=== PATIENT | female | born 1940 | race Caucasian/White ===

== ENCOUNTER 2016-12-07 17:02 | Emergency (ER) | payer BC, MEDICARE ==
[~2016-12-07] VITALS: Ht 167.6 cm; Wt 102.3 kg
[2016-12-07 17:06] VITALS: TEMP 99.1
[2016-12-07 17:40] LABS: BASO # 0.1 (0.0-0.2); BASO % 0.4 % (0.0-2.0); EOS % 0.2 % (0-4.0); GRAN # 9.7 (1.4-6.5); GRAN % 86.7 % (42.2-75.2); HEMATOCRIT 40.5 % (37.0-47.0); HEMOGLOBIN 13.1 g/dl (12.5-16.0); LYMPH % 9.3 % (20.0-51.0); MEAN CELL VOLUME 95 fl (80.0-100.0); MEAN CORPUSCULAR HEMOGLOBIN 31 pg (27.0-31.0); MEAN CORPUSCULAR HGB CONC 32 g/dl (33.0-37.0); MEAN PLATELET VOLUME 10.4 fl (7.4-10.4); MONO # 0.3 (0.1-0.6); MONO % 2.9 % (1.7-9.3); PLATELET COUNT 262 K/mm3 (130-400); RED BLOOD COUNT 4.27 M/mm3 (4.10-5.30); WHITE BLOOD COUNT 11.2 K/mm3 (4.8-10.8)
[2016-12-07] MEDS ORDERED: FOLIC ACID 11 MG/TA1 PO (17:47)
[2016-12-07] MEDS ORDERED: ASPIRIN 81M81 MG/TA2 PO (17:47)
[2016-12-07] MEDS ORDERED: NORCO 325 MG-7.1 TAB PO (17:48)
[2016-12-07] MEDS ORDERED: SYNTHROID0.05 MG/TA PO (17:49)
[2016-12-07] MEDS ORDERED: REMICADE V100 MG/VIA IV (17:49)
[2016-12-07] MEDS ORDERED: LANTUS100 U/ML SQ (17:49)
[2016-12-07] MEDS ORDERED: METHOTREXATE50/2 IM (17:50)
[2016-12-07] MEDS ORDERED: PRINIVIL5 MG PO (17:50)
[2016-12-07 17:51] LABS: ADJUSTED CALCIUM 8.7 mg/dL (8.4-10.2); ALANINE AMINOTRANSFERASE 50 U/L (9-52); ALBUMIN 4.1 gm/dL (3.5-5.0); ALKALINE PHOSPHATASE 123 U/L (50-136); ANION GAP 11 mmol/L (7-16); BILIRUBIN,TOTAL 0.8 mg/dL (0.0-1.0); BLOOD UREA NITROGEN 10 mg/dL (7-17); CALCIUM 8.8 mg/dL (8.4-10.2); CARBON DIOXIDE 24 mmol/L (22-30); CHLORIDE 102 mmol/L (98-107); CREATININE, serum 0.71 mg/dL (0.52-1.25); GLUCOSE 231 mg/dL (74-106); LIPASE 220 U/L (23-300); SODIUM 137 mmol/L (137-145); TOTAL PROTEIN 7.5 gm/dL (6.4-8.2)
[2016-12-07] MEDS ORDERED: ZOFRAN ODT4 MG PO (17:51)
[2016-12-07 17:52] LABS: C-REACTIVE PROTEIN < 0.5 mg/dL (0.0-0.9)
[2016-12-07] MEDS ORDERED: ZOLOFT 100MG100 MG PO (17:52)
[2016-12-07] MEDS ORDERED: VESICARE 5MG5 MG PO (17:52)
[2016-12-07] MEDS ORDERED: ZANTAC 150MG T150 MG PO (17:52)
[2016-12-07] MEDS ORDERED: ZOCOR 40MG40 MG PO (17:52)
[2016-12-07 18:15] LABS: COLLECTION METHOD CLEAN CATCH
[2016-12-07 18:25] LABS: MUCOUS Present /lpf; PH 6 (5-8); SQUAMOUS EPITHELIAL 0-2 /hpf; URINE APPEARANCE Cloudy; URINE BACTERIA Moderate /hpf; URINE BILIRUBIN Negative (NEGATIVE); URINE BLOOD 1+ (NEGATIVE); URINE COLOR Yellow; URINE GLUCOSE 1+ (NEGATIVE); URINE KETONE Negative (NEGATIVE); URINE LEUKOCYTE ESTERASE 3+ (NEGATIVE); URINE PROTEIN(semi-quant) Negative (NEGATIVE); URINE RBC 0-2 /hpf; URINE UROBILINOGEN Negative (NEGATIVE)
[2016-12-07 18:26] LABS: URINE WBC >50 /hpf
[2016-12-07] MEDS ORDERED: MACROBID 1100 MG/CAP PO (18:40)
[2016-12-07 19:25] VITALS: BP 127/69; PULSE 74
== END 2016-12-07 19:27 | disposition home or self-care (01) ==
LOC: COL.ER 17:02
PROVIDERS: Family Medicine
DX: N30.00 Acute cystitis without hematuria (principal); B96.1 Klebsiella pneumoniae [K. pneumoniae] as the cause of diseases classified elsewhere; E11.9 Type 2 diabetes mellitus without complications; Z85.118 Personal history of other malignant neoplasm of bronchus and lung; Z79.4 Long term (current) use of insulin; Z79.82 Long term (current) use of aspirin
CPT/HCPCS: J0696; J7030; Q9967

== ENCOUNTER 2020-12-16 17:49 | Inpatient (IN) | payer MEDICARE, BC ==
[~2020-12-16] VITALS: Ht 165.1 cm; Wt 85.7 kg
[~2020-12-16 17:49] MED LIST: ASPIRIN 81M81 MG/TA2 PO; FOLIC ACID 11 MG/TA1 PO; LANTUS100 U/ML SQ; MACROBID 1100 MG/CAP PO; METHOTREXATE50/2 IM; NORCO 325 MG-7.1 TAB PO; PRINIVIL5 MG PO; REMICADE V100 MG/VIA IV; SYNTHROID0.05 MG/TA PO; VESICARE 5MG5 MG PO; ZANTAC 150MG T150 MG PO; ZOCOR 40MG40 MG PO; ZOFRAN ODT4 MG PO; ZOLOFT 100MG100 MG PO
[2020-12-16 21:37] LABS: BASO # 0.1 K/mm3 (0.0-0.2); BASO % 0.8 % (0.0-2.0); EOS # 0.3 K/mm3 (0.0-0.7); GRAN # 9.5 K/mm3 (1.4-6.5); GRAN % 72.5 % (42.2-75.2); HEMATOCRIT 37.6 % (37.0-47.0); LYMPH % 15.2 % (20.0-51.0); MEAN CELL VOLUME 90 fl (80.0-100.0); MEAN CORPUSCULAR HEMOGLOBIN 29 pg (27.0-31.0); MEAN CORPUSCULAR HGB CONC 32 g/dl (33.0-37.0); MEAN PLATELET VOLUME 9.8 fl (7.4-10.4); MONO # 1.1 K/mm3 (0.1-0.6); MONO % 8.7 % (1.7-9.3); PLATELET COUNT 485 K/mm3 (130-400); RED BLOOD COUNT 4.16 M/mm3 (4.10-5.30)
[2020-12-16 21:56] LABS: ALANINE AMINOTRANSFERASE 9 U/L (0-55); ALBUMIN 2.5 gm/dL (3.4-4.8); ALKALINE PHOSPHATASE 149 U/L (40-150); ANION GAP 14 mmol/L (7-16); AST,SGOT 13 U/L (5-34); BILIRUBIN,TOTAL 0.6 mg/dL (0.2-1.2); BLOOD UREA NITROGEN 6 mg/dL (10-20); C-REACTIVE PROTEIN 5.32 mg/dL (0.00-0.50); CALCIUM 8.6 mg/dL (8.4-10.2); CARBON DIOXIDE 23 mmol/L (23-31); CHLORIDE 102 mmol/L (98-107); CREATININE, serum 0.72 mg/dL (0.57-1.11); GLUCOSE 120 mg/dL (70-99); LIPASE < 10 U/L (8-78); POTASSIUM 3.7 mmol/L (3.5-4.5); SODIUM 139 mmol/L (136-145)
[2020-12-16 22:28] LABS: COLLECTION METHOD CATHETER
[2020-12-16 22:36] LABS: MUCOUS Present /lpf; PH 6 (5-8); URINE APPEARANCE Turbid; URINE BACTERIA Rare /hpf; URINE BILIRUBIN Negative (NEGATIVE); URINE BLOOD Negative (NEGATIVE); URINE COLOR Yellow; URINE GLUCOSE Negative (NEGATIVE); URINE KETONE Trace (NEGATIVE); URINE LEUKOCYTE ESTERASE 3+ (NEGATIVE); URINE NITRATE Positive (NEGATIVE); URINE PROTEIN(semi-quant) 2+ (NEGATIVE)
[2020-12-16] MEDS ORDERED: TYLENOL 325MG325 MG PO (23:38)
[2020-12-16] MEDS ORDERED: ROBAXIN 50500 MG/TAB PO (23:40)
[2020-12-16] MEDS ORDERED: MIRALAX PA17 GM/Dose PO (23:42)
[2020-12-16] MEDS ORDERED: SENNA-LAX8.6 MG PO (23:43)
[2020-12-16] MEDS ORDERED: CRANBERRY450 MG PO (23:44)
[2020-12-16] MEDS ORDERED: GLUCOPHAGE500 MG/TAB PO (23:45)
[2020-12-16] MEDS ORDERED: ZOLOFT 50MG50 MG PO (23:46)
[2020-12-16] MEDS ORDERED: SF 1.1% GEL1.1% PO (23:47)
[2020-12-16] MEDS ORDERED: ZOFRAN 4MG T4 MG/TAB PO (23:49)
[2020-12-16] MEDS ORDERED: ANTI-DIARRHEAL2 MG PO (23:50)
[2020-12-16] MEDS ORDERED: PROTONIX 40MG T40 MG PO (23:51)
[2020-12-16] MEDS ORDERED: LOMOTIL 0.025 M1 TAB PO (23:52)
[2020-12-16] MEDS ORDERED: NOVOLOG 100U100 U/M1 SQ (23:53)
[2020-12-17] VITALS (7 sets, daily range): BP systolic 113–146; BP diastolic 44–80; PULSE 71–95; TEMP 98–99.1
--- NOTE | 2020-12-17 04:09 | NUR ---
PT ARRIVES TO ROOM @ 0230 VIA ER CART. PT TRANSFERRED TO BED WITH SLIDE BOARD ET 3 PERSON ASSIST. PT IS INCONTINENT OF A LARGE AMOUNT OF URINE. PERICARE DONE ET ORLANDA APPLIED. PT IS A&O X3, STATES THAT SHE HAS HAD HER SYMPTOMS SINCE SHE FELL @ THE BEGINNING OF . DENIES PAIN, SOB OR NAUSEA @ THIS TIME. PT EDUCATED ON USE OF CALL LIGHT ET FALL PRECAUTIONS, STATES THAT SHE DOES NOT WALK ET USES A WC. PT IS ASSISTED TO LAY ON RIGHT SIDE, STATES THAT HER BOTTOM HAS BEEN SORE R/T DIARRHEA. PT REQUESTS THAT HER SPOUSE BE NOTIFIED OF HER ADMISSION. SPOUSE IS CALLED, VISITOR POLICY EXPLAINED TO BOTH PT ET SPOUSE. RESPIRATIONS UNLABORED, BED ALARM ON, CALL LIGHT WITHIN REACH.
--- NOTE | 2020-12-17 06:53 | NUR ---
Report received from HAIM Welch. Pt. resting in bed w/ eyes closed, pt. appears to be sleeping. Bed alarm on, call light and belongings in reach.
[2020-12-17 07:08] LABS: INR 1.2 (0.8-3.0); PROTHROMBIN TIME 13.4 SECONDS (9.7-12.8)
[2020-12-17 07:23] LABS: BASO # 0.1 K/mm3 (0.0-0.2); BASO % 0.6 % (0.0-2.0); EOS # 0.4 K/mm3 (0.0-0.7); EOS % 3.6 % (0-4.0); GRAN # 7.7 K/mm3 (1.4-6.5); GRAN % 72.4 % (42.2-75.2); HEMOGLOBIN 10.6 g/dl (12.5-16.0); LYMPH # 1.5 K/mm3 (1.2-3.4); LYMPH % 14.3 % (20.0-51.0); MEAN CELL VOLUME 94 fl (80.0-100.0); MEAN CORPUSCULAR HEMOGLOBIN 29 pg (27.0-31.0); MEAN CORPUSCULAR HGB CONC 31 g/dl (33.0-37.0); MEAN PLATELET VOLUME 10.2 fl (7.4-10.4); MONO # 0.9 K/mm3 (0.1-0.6); MONO % 8.6 % (1.7-9.3); RED BLOOD COUNT 3.66 M/mm3 (4.10-5.30); REDCELL DISTRIBUTION WIDTH-CV 15.9 % (11.5-14.5)
[2020-12-17 07:24] LABS: HEMATOCRIT 34.3 % (37.0-47.0); PLATELET COUNT 364 K/mm3 (130-400)
[2020-12-17 08:09] LABS: CREATININE, serum 0.63 mg/dL (0.57-1.11); POTASSIUM 3.2 mmol/L (3.5-4.5)
[2020-12-17 08:33] LABS: TROPONIN-I 0.01 ng/mL (0.00-0.033); TSH w REFLEX 0.881 uIU/mL (0.350-4.940)
--- NOTE | 2020-12-17 11:39 | NUR ---
Pt. is progressing w/ plan of care. Pt. was incontinent of urine, pt. changed and new purewick cath placed. Assessment complete. Call bed alarm on, call light and belongings in reach.
--- NOTE | 2020-12-17 14:20 | NUR ---
Ingredient Scaler met with patient, patient's , Cy (ph#[phone]) and patient's son, Dane (ph#[phone]) to discuss discharge planning. Patient was living at [facility] after a skilled stay, however patient states she is not going back there. Patient's family advised that she is set up to go to [facility] in [place] upon discharge and provided contact information for Charmaine Ward, Director of [facility] (ph#[phone]). Patient has been seeing Dr. Rivera for primary care but will switch to Dr. Bernardo in [place] once she gets to [facility]. Patient obtains medications from [facility] in with no difficulties. Patient has a walker, wheelchair, and CPAP although she reports she is not currently using her CPAP. Patient advised she was previously independent with ADLS before her femur fracture but now has to use the walker and wheelchair. Patient has DPOA-HC which designates Cy and Dane. Copy placed on chart by nursing staff. BIANCA contacted Charmaine at [facility] who confirmed they can accept patient upon discharge. Charmaine advised that Cy is coming in on Sunday to complete the paperwork. BIANCA faxed clinical updates. Discharge Plan: [facility] PH#[phone] FAX#[phone]
--- NOTE | 2020-12-17 23:39 | NUR ---
PT AWAKENED FOR HEPARIN SQ INJECTION. PT IS A&O, PLEASANT, DENIES ANY ABDOMINAL PAIN @ THIS TIME OR NAUSEA. PT DID HAVE 3 INCONTINENT LOOSE STOOLS BETWEEN [phone]. IMMODIUM WAS ADMINISTERED. IVF INFUSING. PUREWICK IN PLACE TO PREVENT SKIN BREAKDOWN R/T INCONTINENCE. DESENEX POWDER APPLIED TO RIGHT ABDOMINAL FOLD R/T REDNESS. PT DENIES OTHER NEEDS. RESPIRATIONS UNLABORED, BED ALARM ON, CALL LIGHT WITHIN REACH.
[2020-12-18 03:49] VITALS: BP 108/60; PULSE 80; TEMP 98.3
[2020-12-18 08:02] LABS: MEAN CELL VOLUME 94 fl (80.0-100.0); MEAN CORPUSCULAR HGB CONC 31 g/dl (33.0-37.0); MEAN PLATELET VOLUME 10.3 fl (7.4-10.4); PLATELET COUNT 313 K/mm3 (130-400); RED BLOOD COUNT 3.22 M/mm3 (4.10-5.30); REDCELL DISTRIBUTION WIDTH-CV 15.9 % (11.5-14.5)
[2020-12-18 08:05] LABS: HEMATOCRIT 30.2 % (37.0-47.0); HEMOGLOBIN 9.4 g/dl (12.5-16.0); MEAN CORPUSCULAR HEMOGLOBIN 29 pg (27.0-31.0)
[2020-12-18 08:23] LABS: CALCIUM 7.6 mg/dL (8.4-10.2); CREATININE, serum 0.55 mg/dL (0.57-1.11); MAGNESIUM 1.5 mg/dL (1.6-2.6); PHOSPHOROUS 3.5 mg/dL (2.3-4.7)
[2020-12-18 08:30] LABS: POTASSIUM 2.9 mmol/L (3.5-4.5)
[2020-12-18 08:42] VITALS: BP 117/54; PULSE 85; TEMP 98
[2020-12-18 11:41] VITALS: BP 114/54; PULSE 82; TEMP 97.9
[2020-12-18 16:32] VITALS: BP 125/62; PULSE 80; TEMP 99
--- NOTE | 2020-12-18 19:19 | NUR ---
PT HAD UNEVENTFUL DAY. C/O PAIN IN THE RIGHT GROIN; XRAY WAS OBTAINED. PT POTASSIUM WAS LOW TODAY AT 2.9, MAGNESIUM WAS LOW AT 1.5, REPLACED PER PROTOCOL, WELL CONTACTING THE PHYSICIAN WHO ORDERED POTASSIUM BID. THE PATIENT REMAINED INCONTINENT TODAY, NO WORSENING PRESSURE INJURIES OR EXCORIATION. THE PATIENT DOES NOT COMPLAIN OF ANY PROBLEMS IN THE PERINEAL AREA FROM THE BRIEF. NO FURTHER CONCERNS. REPORT GIVEN TO PIT INSPECTOR RN.
[2020-12-18 21:02] VITALS: BP 124/55; PULSE 81; TEMP 98.4
[2020-12-19 00:32] VITALS: BP 132/54; PULSE 88; TEMP 98.1
--- NOTE | 2020-12-19 00:42 | NUR ---
Patient resting in bed upon enter the room. Patient's spouse in the room. Patient denies pain or SOB. Patient reports purewick is not working and she feels wet. Changed purewick and parminder-care provided. IVF infusing per APR. K+ recheck was 4.5 tonight. All scheduled meds given per MAR. Call light in reach. Will continue to monitor.
[2020-12-19 04:31] VITALS: BP 122/52; PULSE 83; TEMP 98
--- NOTE | 2020-12-19 07:39 | NUR ---
Pt. progressing w/ plan of care. Pt. resting in bed. Pt. requesting ice water, ice water provided. Pt. denies further needs at this time. Call light and belongings in reach.
[2020-12-19 08:00] VITALS: BP 140/67; PULSE 94; TEMP 98.2
[2020-12-19 08:03] LABS: BASO # 0.1 K/mm3 (0.0-0.2); BASO % 0.8 % (0.0-2.0); EOS # 0.8 K/mm3 (0.0-0.7); EOS % 8.3 % (0-4.0); GRAN # 6.4 K/mm3 (1.4-6.5); GRAN % 68.5 % (42.2-75.2); LYMPH # 1.2 K/mm3 (1.2-3.4); MEAN CELL VOLUME 93 fl (80.0-100.0); MEAN CORPUSCULAR HEMOGLOBIN 29 pg (27.0-31.0); MEAN CORPUSCULAR HGB CONC 31 g/dl (33.0-37.0); MEAN PLATELET VOLUME 10.5 fl (7.4-10.4); MONO # 0.8 K/mm3 (0.1-0.6); MONO % 8.9 % (1.7-9.3); PLATELET COUNT 333 K/mm3 (130-400); RED BLOOD COUNT 3.44 M/mm3 (4.10-5.30); REDCELL DISTRIBUTION WIDTH-CV 15.8 % (11.5-14.5)
[2020-12-19 08:09] LABS: HEMATOCRIT 32.1 % (37.0-47.0)
[2020-12-19 08:22] LABS: ALBUMIN 1.8 gm/dL (3.4-4.8); CALCIUM 8.1 mg/dL (8.4-10.2); CREATININE, serum 0.54 mg/dL (0.57-1.11); MAGNESIUM 1.9 mg/dL (1.6-2.6); PHOSPHOROUS 2.8 mg/dL (2.3-4.7); POTASSIUM 3.8 mmol/L (3.5-4.5)
--- NOTE | 2020-12-19 10:25 | NUR ---
Pt. progressing w/ plan of care. Pt. worked w/ PT and was able to take four steps. Pt. had some weakness and was assisted back to bed. Pt. was able to eat some toast and tolerated well. AM meds about to be given, Dr. Gunderson from pulmonology in to see the patient at this time. Call light/ belongings in reach.
[2020-12-19 11:05] VITALS: BP 134/57; PULSE 88; TEMP 98.7
--- NOTE | 2020-12-19 15:00 | NUR ---
Dr. Kerry Gamboa notified of ortho consult, made aware on the phone, she reports she will see the patient.
--- NOTE | 2020-12-19 15:02 | NUR ---
BIANCA called by physician to inquire about [facility] admitting status. BIANCA called [facility] staff member. Staff member stated that staff was limited on weekend and family will be moving patient's personal items today. Staff member provided that DC to facility would be better on 12-20-2020. Staff member also stated that there was paper work that needed to be completed before patient goes to facility. SW provided staff member with fax number and awaited documents. BIANCA has yet see sent documents by agency. Information provided SW for 12-20-2020 review.
[2020-12-19 16:00] VITALS: BP 145/72; PULSE 90; TEMP 98.5
--- NOTE | 2020-12-19 18:14 | NUR ---
Pt. progressing w/ plan of care. Pt.'s visited today. Plan for oncologist Dr. Cabrera to see patient tomorrow. The orthopedic doctor also saw pt. today, no interventions at this time. Needs addressed, call light and belongings in reach.
--- NOTE | 2020-12-19 20:00 | NUR ---
PATIENT IS ALERT AND ORIENTED X4. PATIENT SITTING UP IN BED. PATIENT IS DNR STATUS. PATIENT HAS PUREWICK IN WITH YELLOW AND CLEAR OUTPUT. PATIENT ON CLEAR LIQ UID DIET. PATIENT ON SCHS AND POTASSIUM PROTOCOL. PATIENT HAS IV TO RIGHT UPPER ARM AND TO RIGHT WRIST. PATIENT WEARING BRACE FOR PAST BACK PROBLEMS. PATIENT GIVEN ICE WATER. PATIENT DENIES PAIN OR FURTHER NEEDS AT THIS TIME. CALL LIGHT WITHIN REACH. HEAD TO TOE ASSESSMENT COMPLETE.
[2020-12-19 20:16] VITALS: BP 127/63; PULSE 87; TEMP 98.6
[2020-12-20] VITALS (7 sets, daily range): BP systolic 112–143; BP diastolic 53–68; PULSE 86–101; TEMP 98.1–98.8
[2020-12-20 06:10] LABS: BASO # 0.1 K/mm3 (0.0-0.2); BASO % 0.9 % (0.0-2.0); EOS # 0.7 K/mm3 (0.0-0.7); EOS % 6.9 % (0-4.0); GRAN # 6.4 K/mm3 (1.4-6.5); GRAN % 65.4 % (42.2-75.2); LYMPH # 1.6 K/mm3 (1.2-3.4); LYMPH % 16.6 % (20.0-51.0); MEAN CELL VOLUME 93 fl (80.0-100.0); MEAN CORPUSCULAR HEMOGLOBIN 29 pg (27.0-31.0); MEAN CORPUSCULAR HGB CONC 31 g/dl (33.0-37.0); MEAN PLATELET VOLUME 10.6 fl (7.4-10.4); MONO % 9.8 % (1.7-9.3); PLATELET COUNT 334 K/mm3 (130-400); RED BLOOD COUNT 3.47 M/mm3 (4.10-5.30); REDCELL DISTRIBUTION WIDTH-CV 15.9 % (11.5-14.5)
--- NOTE | 2020-12-20 06:13 | NUR ---
PATIENT SLEPT ON AND OFF THROUGHOUT NIGHT. PATIENT WILL POTENTIALLY DISCHARGE TODAY. PATIENT GIVEN TYLENOL FOR HEADACHE PER ORDERS. PATIENT PAD CHANGED DUE TO PUREWICK LEAKING. [facility] PROVIDED. NO FURTHER NEEDS AT THIS TIME. WILL REPORT TO DAYSHIFT.
[2020-12-20 06:15] LABS: HEMATOCRIT 32.4 % (37.0-47.0)
[2020-12-20 06:40] LABS: ALBUMIN 1.9 gm/dL (3.4-4.8); CREATININE, serum 0.6 mg/dL (0.57-1.11); MAGNESIUM 1.9 mg/dL (1.6-2.6); PHOSPHOROUS 3.1 mg/dL (2.3-4.7); POTASSIUM 4.3 mmol/L (3.5-4.5)
--- NOTE | 2020-12-20 10:09 | NUR ---
Initial visit; Patient thanked Airline Station Agent for looking in on her and offering God's blessings and keeping her in Airline Station Agent's prayers.
--- NOTE | 2020-12-20 10:31 | NUR ---
PT RESTING IN BED, ASSISTED WITH CLEANUP AND BED CHANGE. PT INCONTINENT OF STOOL AND URINE.
--- NOTE | 2020-12-20 16:31 | NUR ---
Casting Technician faxed clinical updates and therapy notes to [facility]. BIANCA spoke with Charmaine Ward, Director and HAIM Stanley who advised they will be able to meet patient's needs with increased care and Home Health for PT/OT/Nursing. Jaden advised they are affiliated with [facility] and can easily set up services upon discharge.
--- NOTE | 2020-12-20 23:42 | NUR ---
PT RESTING QUIETLY IN BED WATCHING TV. MEDICATIONS ADMINISTERED. PT DENIES PAIN. HAS HAD 1 MODERATE INCONTINENT LOOSE STOOL EARLIER IN NIGHT. PERICARE WAS PERFORMED ET PUREWICK CHANGED. CANNISTER FOR PUREWICK DRAINED, PT HAS 800 ML YELLOW CLOUDY URINE. BACK BRACE IS OFF @ THIS TIME R/T PT REQUEST, STATES THAT IT MAKES HER SKIN ITCH. SKIN ON BACK IS RED WHEN BRACE IS REMOVED. RESPIRATIONS UNLABORED. PT DENIES OTHER NEEDS. CALL LIGHT WITHIN REACH.
[2020-12-21] VITALS (11 sets, daily range): BP systolic 80–126; BP diastolic 51–63; PULSE 85–102; TEMP 97.5–98.6
--- NOTE | 2020-12-21 06:01 | NUR ---
PT IS AWAKE, SITTING UPRIGHT IN BED. PUREWICK IN PLACE. PT DENIES PAIN BUT STATES THAT HER BACK IS VERY ITCHY ET THAT SHE HAS BEEN SCRATCHING IT AGAINST HER BED, BELIEVES THAT IT WAS CAUSED BY BACK BRACE. BACK BRACE IS OFF. WHEN ASSESSED, PT'S BACK IS RED ET HOT TO TOUCH. BODY MOISTURIZER APPLIED. WILL PASS ON INFORMATION TO ONCOMING DAY SHIFT NURSE. PT STATES THANK YOU ET THAT THE LOTION HELPS. DENIES OTHER NEEDS. RESPIRATIONS UNLABORED, CALL LIGHT WITHIN REACH.
[2020-12-21 06:42] LABS: HEMOGLOBIN 10.9 g/dl (12.5-16.0); MEAN CELL VOLUME 93 fl (80.0-100.0); MEAN CORPUSCULAR HEMOGLOBIN 30 pg (27.0-31.0); MEAN CORPUSCULAR HGB CONC 32 g/dl (33.0-37.0); MEAN PLATELET VOLUME 10.9 fl (7.4-10.4); PLATELET COUNT 346 K/mm3 (130-400); REDCELL DISTRIBUTION WIDTH-CV 16.1 % (11.5-14.5)
[2020-12-21 06:43] LABS: HEMATOCRIT 34.4 % (37.0-47.0)
[2020-12-21 07:07] LABS: CALCIUM 8.2 mg/dL (8.4-10.2); CREATININE, serum 0.64 mg/dL (0.57-1.11); POTASSIUM 4.5 mmol/L (3.5-4.5)
--- NOTE | 2020-12-21 09:33 | NUR ---
PT RESTING IN BED NPO FOR BIOPSY LATER TODAY. MEDICAL TEAM ROUNDED AND HAD CONVERSATIONS ON THE NEED FOR SNF VS AL. PT WAS OPEN TO GOING SNF FOR REHAB PRIOR TO GOING TO [facility].
--- NOTE | 2020-12-21 11:58 | NUR ---
PT TO CT AT THIS TIME.
--- NOTE | 2020-12-21 12:03 | NUR ---
Pt onto ct table per slide board. O2 on at 2l/nc. Monitors applied. Pt in supine position.
--- NOTE | 2020-12-21 12:19 | NUR ---
Specimens obtained by Dr Melendez and placed in formalin. Specimen labeled.
--- NOTE | 2020-12-21 16:29 | NUR ---
Online Project Manager attended clinical rounds with the team and Hospitalist and RN feel that patient needs to be discharged to a halfway facility. BIANCA followed up with patient who advised she would like SW to contact her , Cy to discuss this. BIANCA contacted Cy who expressed understanding, however wants patient to go to [facility]. Cy advised patient had a poor experience at [facility] and that they also would not want patient to go to [facility] or [place]. Cy advised he would need to call SW back before deciding on SNF referrals. BIANCA collaborated with HAIM Stanley and Charmaine, Director at [facility]. BIANCA reviewed notes with Jaden who thought patient may need SNF if that is what is being recommended. BIANCA also spoke with Marc at [facility] who advised patient was in their skilled rehab facility for about a month but then had to transition to long-term care as she was not making progress with therapy. Patient's RN, Michael spoke with BIANCA and advised that patient's primary care office contacted him and reported that Cy had been in to visit with them about discharge planning. Per Dr. Az Rodriguez's RN Agustina had [facility]. BIANCA followed up with Hospitalist team and TUAN Allen advised she spoke with patient's , Cy who was firm that he wanted patient to discharge to [facility]. Plan will be to discharge to [facility]. BIANCA contacted Charmaine, Director at [facility] who advised they were still good to take patient. Charmaine advised they work with both [facility] and [facility], they just don't know what family prefers. BIANCA contacted patient's , Cy who would like to use [facility] . BIANCA contacted Shelly at [facility] and faxed referral. Discharge Plan: [facility] with [facility].
--- NOTE | 2020-12-21 20:00 | NUR ---
PATIENT IS ALERT AND ORIENTED X4. PATIENT IS ON GENERAL DIENT. PATIENT IS DNR AND ON ACHS. PATIENT TO HAVE KIDNEY SCAN IN AM. PLAN FOR ASSISSTED LIVING DISCHARGE. PATIENT HAS PUREWICK IN, OUTPUT IS CLEAR AND YELLOW. PATIENT LEAVING BEDSIDE. PATIENT HAS IV TO RIGHT AC AND RIGHT FOREARM. PATIENT DENIES PAIN OR FURTHER NEEDS AT THIS TIME. CALL LIGHT WITHIN REACH. HEAD TO TOE ASSESSMENT COMPLETE.
--- NOTE | 2020-12-22 00:09 | NUR ---
PATIENT'S BACK IS REDDENED AND HAS DRY SORES ON IT. BARRIER CREAM APPLIED.
[2020-12-22 04:35] VITALS: BP 129/53; PULSE 80; TEMP 97.9
[2020-12-22 05:22] VITALS: BP 118/58; PULSE 86; TEMP 98.2
--- NOTE | 2020-12-22 06:00 | NUR ---
PATIENT SLEPT MOST OF NIGHT. ROLANDA CHANGED THIS AM AND PERICARE PROVIDED. WILL REPORT TO DAYSHIFT.
[2020-12-22 06:40] LABS: HEMOGLOBIN 11.1 g/dl (12.5-16.0); MEAN CELL VOLUME 93 fl (80.0-100.0); MEAN CORPUSCULAR HEMOGLOBIN 29 pg (27.0-31.0); MEAN CORPUSCULAR HGB CONC 31 g/dl (33.0-37.0); MEAN PLATELET VOLUME 10.5 fl (7.4-10.4); PLATELET COUNT 387 K/mm3 (130-400); RED BLOOD COUNT 3.85 M/mm3 (4.10-5.30); REDCELL DISTRIBUTION WIDTH-CV 16.4 % (11.5-14.5)
[2020-12-22 06:42] LABS: HEMATOCRIT 35.7 % (37.0-47.0)
[2020-12-22 07:02] LABS: CALCIUM 8.7 mg/dL (8.4-10.2); CREATININE, serum 0.68 mg/dL (0.57-1.11); POTASSIUM 4.7 mmol/L (3.5-4.5)
[2020-12-22 07:26] VITALS: BP 124/57; PULSE 84; TEMP 98
--- NOTE | 2020-12-22 08:30 | NUR ---
awakened and repositioned in bed, breakfast ordered, denies needs at this time, full assessment completed, see interventions for further info
[2020-12-22] MEDS ORDERED: OMNICEF 300MG300 MG PO (10:34)
[2020-12-22 11:37] VITALS: BP 109/57; PULSE 86; TEMP 98.2
[2020-12-22 12:31] VITALS: BP 109/57; PULSE 86; TEMP 98.2
--- NOTE | 2020-12-22 12:45 | NUR ---
INTs discontinued and she is dressed and ready for discharge, puresick catheter removed and depends on for transfer, lunch ordered
--- NOTE | 2020-12-22 13:20 | NUR ---
assisted up and into WC for discharge, transferred per WC to exit and into care or [place] assisted living
--- NOTE | 2020-12-22 16:25 | NUR ---
Optical Glass Silverer attended clinical rounds with the team and patient to discharge to [facility]. SW met with patient and reviewed IM form. Patient verbalized understanding and provided signature. SW placed form in chart and provided copy to patient. Patient is agreeable to discharge to [facility] today. BIANCA contacted patient's , Cy who is agreeable with discharge plan and advised [facility] will provide transportation. BIANCA contacted Charmaine Ward, Director who advised she will order picker/assembler patient at 1300. BIANCA faxed discharge orders to [facility]. BIANCA also contacted Shelly at [facility] and left a message, then faxed discharge orders to [facility] . Discharge Plan: [facility] with [facility] PT/OT/Nursing.
== END 2020-12-22 13:20 | disposition home or self-care (01) | DRG 872 ==
LOC: COL.ER 17:49 → SURG 12-17 01:20
PROVIDERS: Emergency Medicine; Nurse Practitioner Family; Physician Assistant; ADMIT Internal Medicine
PROC: 0BBG3ZX Excision of Left Upper Lung Lobe, Percutaneous Approach, Diagnostic (ICD-10-PCS; principal; 2020-12-21)
DX: A41.51 Sepsis due to Escherichia coli [E. coli] (principal); M48.56XA Collapsed vertebra, not elsewhere classified, lumbar region, initial encounter for fracture; N39.0 Urinary tract infection, site not specified; E11.9 Type 2 diabetes mellitus without complications; I10 Essential (primary) hypertension; M19.90 Unspecified osteoarthritis, unspecified site; E03.9 Hypothyroidism, unspecified; M06.9 Rheumatoid arthritis, unspecified; G47.30 Sleep apnea, unspecified; G31.84 Mild cognitive impairment of uncertain or unknown etiology; D64.9 Anemia, unspecified; N28.9 Disorder of kidney and ureter, unspecified; E78.5 Hyperlipidemia, unspecified; D75.839 Thrombocytosis, unspecified; E87.6 Hypokalemia; R15.9 Full incontinence of feces; R32 Unspecified urinary incontinence; K21.9 Gastro-esophageal reflux disease without esophagitis; N28.1 Cyst of kidney, acquired; Z85.118 Personal history of other malignant neoplasm of bronchus and lung; Z79.82 Long term (current) use of aspirin; Z79.4 Long term (current) use of insulin; Z87.891 Personal history of nicotine dependence
CPT/HCPCS: 99223-AI; 99233-AI; 99239; J0696; J1644; J1815; J2405; J2550; J3475; J3480; J7030; Q9967